=== PATIENT | female | born 1970 | race African-American/Black ===

== ENCOUNTER 2021-01-24 20:56 | Inpatient (IN) | payer MEDICAID ==
[~2021-01-24] VITALS: Ht 160 cm; Wt 78.9 kg
[2021-01-24] MEDS ORDERED: NALOXONE HCL 0.4 MG/ML 1ML VIAL IV PRN (21:15)
[2021-01-24] MEDS ORDERED: SODIUM CHLORIDE 0.9% 1,000 ML IV ONE (21:15)
[2021-01-24] MEDS ORDERED: DIPHENHYDRAMINE 50MG/ML VIAL IM STA (21:19)
[2021-01-24] MEDS ORDERED: HALOPERIDOL LACTATE 5MG/ML VIAL IM STA (21:19)
[2021-01-24 22:55] LABS: BASOPHILS % 0.5 % (0.0-2.0); EOSINOPHILS % 0.7 % (0.0-5.0); HEMATOCRIT. 37.5 % (36.0-48.0); HEMOGLOBIN. 12.2 g/dL (12.0-16.0); LYMPHOCYTES % 23.7 % (20.0-50.0); MEAN CORPUSCULAR HEMOGLOBIN 28.7 pg (28.0-32.0); MEAN CORPUSCULAR VOLUME 88.1 fL (81.0-99.0); MONOCYTES % 6.2 % (2.0-8.0); NEUTROPHILS % 68.9 % (40.0-76.0); PLATELET 398 x1000/uL (130-400); RED BLOOD CELL COUNT 4.26 mill/uL (4.2-5.4); RED CELL DISTRIBUTION WIDTH 14.9 % (11.6-14.6)
[2021-01-24 23:02] LABS: CHLORIDE 108 mEq/L (98-107)
[2021-01-24 23:11] LABS: CREATINE KINASE 601 IU/L (26-192)
[2021-01-24 23:12] LABS: HCG SCREEN NEGATIVE
[2021-01-24 23:25] LABS: ETHANOL BLOOD 403 mg/dL
[2021-01-25] MEDS ORDERED: SODIUM CHLORIDE 0.9% 1,000 ML IV ONE (00:15)
[2021-01-25] MEDS ORDERED: FOLIC ACID 1 MG, THIAMINE HCL 100 MG, MVI, ADULT NO.1 10 ML in DEXTROSE 5% WATER 1,000 ML IV ONE (00:15)
[2021-01-25] MEDS ORDERED: DEXT 5%/0.9% NACL 1,000 ML IV ONE (02:00)
[2021-01-25 06:14] LABS: CLARITY URINE CLEAR (CLEAR); COLOR URINE YELLOW (YELLOW); KETONES URINE NEGATIVE (NEGATIVE); LEUKOCYTE ESTERASE URINE 1+ (NEGATIVE); NITRITE URINE NEGATIVE (NEGATIVE); OCCULT BLOOD URINE NEGATIVE (NEGATIVE); PROTEIN URINE NEGATIVE (NEGATIVE); SPECIFIC GRAVITY URINE 1.011 (1.005-1.030); UROBILINOGEN URINE 0.2 E.U./dL (0.2-1.0)
[2021-01-25 06:30] LABS: *AMPHETAMINES SCREEN URINE NEGATIVE (NEGATIVE); *BARBITURATES SCREEN URINE NEGATIVE (NEGATIVE); *BENZODIAZEPINES SCREEN URINE NEGATIVE (NEGATIVE)
[2021-01-25 06:31] LABS: CANNABINOID URINE SCREEN NEGATIVE (NEGATIVE); METHADONE URINE SCREEN NEGATIVE (NEGATIVE); OPIATES URINE SCREEN NEGATIVE (NEGATIVE); PHENCYCLIDINE URINE SCREEN NEGATIVE (NEGATIVE)
[2021-01-25 06:32] LABS: *COCAINE SCREEN URINE PRESUMTIVE POSITIVE (NEGATIVE)
[2021-01-25 10:00] VITALS: BP 117/80
[2021-01-25] MEDS: CHLORDIAZEPOXIDE 25MG CAPSULE PO SCH ×3 (10:27→21:29)
[2021-01-25] MEDS: THIAMINE HCL 100MG TABLET PO SCH (10:28)
[2021-01-25] MEDS: FOLIC ACID 1MG TABLET PO SCH (10:28)
[2021-01-25] MEDS: DEXT 5%/0.9% NACL 1,000 ML IV SCH ×2 (10:39→21:36)
[2021-01-25] MEDS ORDERED: AMLO5TAB88 PO (11:52)
[2021-01-25] MEDS ORDERED: QUET50TA PO (11:53)
[2021-01-25 12:00] VITALS: BP 125/64
[2021-01-25] MEDS ORDERED: HYDR50SY PO (14:12)
[2021-01-25] MEDS ORDERED: HYDROXYZINE 25MG TABLET PO PRN (14:15)
[2021-01-25] MEDS: HYDROXYZINE 25MG TABLET PO PRN ×2 (14:25→21:29)
[2021-01-25 16:00] VITALS: BP 140/56
[2021-01-25 17:32] LABS: BASOPHILS % 0.4 % (0.0-2.0); EOSINOPHILS % 0.9 % (0.0-5.0); HEMOGLOBIN. 9.8 g/dL (12.0-16.0); LYMPHOCYTES % 25.7 % (20.0-50.0); MEAN CORPUSCULAR HEMOGLOBIN 28.8 pg (28.0-32.0); MEAN CORPUSCULAR VOLUME 87.8 fL (81.0-99.0); MONOCYTES % 9.2 % (2.0-8.0); NEUTROPHILS % 63.8 % (40.0-76.0); PLATELET 319 x1000/uL (130-400); RED BLOOD CELL COUNT 3.41 mill/uL (4.2-5.4); RED CELL DISTRIBUTION WIDTH 15.3 % (11.6-14.6)
[2021-01-25 17:44] LABS: CHLORIDE 110 mEq/L (98-107)
[2021-01-25 21:30] VITALS: BP 146/65
[2021-01-26] VITALS: BP 139/65
[2021-01-26] MEDS: DEXT 5%/0.9% NACL 1,000 ML IV SCH ×2 (06:00→16:00)
[2021-01-26] MEDS: CHLORDIAZEPOXIDE 25MG CAPSULE PO SCH ×3 (06:09→20:57)
[2021-01-26 06:12] VITALS: BP 134/84
[2021-01-26] MEDS: FOLIC ACID 1MG TABLET PO SCH (09:37)
[2021-01-26] MEDS: THIAMINE HCL 100MG TABLET PO SCH (09:37)
[2021-01-26 09:52] LABS: CHLORIDE 110 mEq/L (98-107)
[2021-01-26 09:56] LABS: BASOPHILS % 0.3 % (0.0-2.0); EOSINOPHILS % 2.5 % (0.0-5.0); HEMATOCRIT. 30.6 % (36.0-48.0); HEMOGLOBIN. 9.9 g/dL (12.0-16.0); LYMPHOCYTES % 33.5 % (20.0-50.0); MEAN CORPUSCULAR HEMOGLOBIN 28.4 pg (28.0-32.0); MEAN CORPUSCULAR VOLUME 88.3 fL (81.0-99.0); MEAN PLATELET VOLUME 7.4 fl (7.4-10.4); MONOCYTES % 10.5 % (2.0-8.0); NEUTROPHILS % 53.2 % (40.0-76.0); PLATELET 310 x1000/uL (130-400); RED BLOOD CELL COUNT 3.47 mill/uL (4.2-5.4)
[2021-01-26 12:00] VITALS: BP 148/89
[2021-01-26 16:00] VITALS: BP 109/67
[2021-01-26] MEDS: HYDROXYZINE 25MG TABLET PO PRN (17:34)
[2021-01-26 20:00] VITALS: BP 130/89
[2021-01-27] VITALS: BP 125/77
[2021-01-27] MEDS: DEXT 5%/0.9% NACL 1,000 ML IV SCH (02:00)
[2021-01-27 04:00] VITALS: BP 106/65
[2021-01-27] MEDS: CHLORDIAZEPOXIDE 25MG CAPSULE PO SCH (05:18)
[2021-01-27 08:00] VITALS: BP 110/74
[2021-01-27] MEDS: FOLIC ACID 1MG TABLET PO SCH (09:40)
[2021-01-27] MEDS: THIAMINE HCL 100MG TABLET PO SCH (09:41)
== END 2021-01-27 11:10 | disposition left against medical advice (07) | DRG 52 ==
LOC: EDBD 20:56 → ER 20:56 → 8WST 01-25 00:34 → ENRESERV 01-25 08:23
PROVIDERS: ADMIT Family Medicine; ATTEND Family Medicine
DX: G92 Toxic encephalopathy (principal); F10.129 Alcohol abuse with intoxication, unspecified; F14.90 Cocaine use, unspecified, uncomplicated; E44.0 Moderate protein-calorie malnutrition; D64.9 Anemia, unspecified; Y90.8 Blood alcohol level of 240 mg/100 ml or more; Z59.0 Homelessness; Z68.30 Body mass index [BMI] 30.0-30.9, adult
CPT/HCPCS: 36415; 71045; 80053; 80305; 80307; 80320; 80329; 81003; 82550; 82962; 83605; 83735; 84100; 84703; 85025; 93005; 99291; J1200; J1630; J3411; J3490; J7030; J7042; J7070; G0480

== ENCOUNTER 2021-10-25 04:11 | Inpatient (IN) | payer MEDICAID, OTHER ==
[~2021-10-25] VITALS: Ht 157.5 cm; Wt 70.3 kg
[~2021-10-25 04:11] MED LIST: AMLO5TAB88 PO; HYDR50SY PO; QUET50TA PO
[2021-10-25] MEDS ORDERED: SODIUM CHLORIDE 0.9% 1,000 ML IV ONE ×2 (05:45→06:00)
[2021-10-25 05:58] LABS: BASOPHILS % 0.6 % (0.0-2.0); EOSINOPHILS % 0.4 % (0.0-5.0); HEMATOCRIT. 37.7 % (36.0-48.0); HEMOGLOBIN. 12.5 g/dL (12.0-16.0); LYMPHOCYTES % 44.1 % (20.0-50.0); MEAN CORPUSCULAR HEMOGLOBIN 29.8 pg (28.0-32.0); MEAN CORPUSCULAR VOLUME 90.1 fL (81.0-99.0); MEAN PLATELET VOLUME 8.3 fl (7.4-10.4); NEUTROPHILS % 43.9 % (40.0-76.0); PLATELET 178 x1000/uL (130-400); RED BLOOD CELL COUNT 4.19 mill/uL (4.2-5.4); RED CELL DISTRIBUTION WIDTH 13.5 % (11.6-14.6)
[2021-10-25 06:00] LABS: CHLORIDE 101 mEq/L (98-107)
[2021-10-25] MEDS ORDERED: CHLORDIAZEPOXIDE 25MG CAPSULE PO ONE (06:00)
[2021-10-25] MEDS ORDERED: LORAZEPAM 2MG/ML CPJ IV ONE (06:00)
[2021-10-25] MEDS ORDERED: ASPIRIN 325MG EC TABLET PO ONE (12:45)
[2021-10-25 16:30] VITALS: BP_SYST 163; BP_SYST 165; BP_DIAS 93
[2021-10-25] MEDS ORDERED: HYDROCODONE/ACETAMINOPHEN 5/325MG TABLET PO PRN (16:45)
[2021-10-25 16:59] LABS: CLARITY URINE CLOUDY (CLEAR); COLOR URINE DARK YELLOW (YELLOW); KETONES URINE 2+ (NEGATIVE); LEUKOCYTE ESTERASE URINE TRACE (NEGATIVE); NITRITE URINE NEGATIVE (NEGATIVE); OCCULT BLOOD URINE NEGATIVE (NEGATIVE); PH URINE 5.5 (4.5-8.0); PROTEIN URINE 1+ (NEGATIVE); SPECIFIC GRAVITY URINE 1.022 (1.005-1.030)
[2021-10-25 17:13] LABS: *AMPHETAMINES SCREEN URINE NEGATIVE (NEGATIVE); *BARBITURATES SCREEN URINE NEGATIVE (NEGATIVE); *BENZODIAZEPINES SCREEN URINE PRESUMTIVE POSITIVE (NEGATIVE); CANNABINOID URINE SCREEN PRESUMTIVE POSITIVE (NEGATIVE); OPIATES URINE SCREEN NEGATIVE (NEGATIVE); PHENCYCLIDINE URINE SCREEN NEGATIVE (NEGATIVE)
[2021-10-25 17:14] LABS: METHADONE URINE SCREEN NEGATIVE (NEGATIVE)
[2021-10-25 17:15] LABS: *COCAINE SCREEN URINE PRESUMTIVE POSITIVE (NEGATIVE)
[2021-10-25] MEDS: AMLODIPINE 5MG TABLET PO SCH (17:15)
[2021-10-25 20:00] VITALS: BP 150/84
[2021-10-25] MEDS: METOPROLOL TARTRATE 50MG TABLET PO SCH (20:42)
[2021-10-25] MEDS: QUETIAPINE FUMARATE 50MG TABLET PO SCH (20:42)
[2021-10-25 23:45] VITALS: BP 93/68
[2021-10-26 04:00] VITALS: BP 139/82
[2021-10-26 08:00] VITALS: BP 122/85
[2021-10-26] MEDS: ASPIRIN 81MG TABLET PO SCH (09:09)
[2021-10-26] MEDS: MULTIVITAMINS,THER W-MINERALS TABLET PO SCH (09:10)
[2021-10-26] MEDS: AMLODIPINE 5MG TABLET PO SCH (09:10)
[2021-10-26] MEDS: FOLIC ACID 1MG TABLET PO SCH (09:10)
[2021-10-26] MEDS: METOPROLOL TARTRATE 50MG TABLET PO SCH ×2 (09:10→21:12)
[2021-10-26] MEDS: THIAMINE HCL 100MG TABLET PO SCH (09:10)
[2021-10-26] MEDS: LORAZEPAM 2MG/ML CPJ IV PRN ×2 (09:19→17:12)
[2021-10-26] MEDS: CHLORDIAZEPOXIDE 25MG CAPSULE PO SCH ×3 (11:52→21:12)
[2021-10-26 12:00] VITALS: BP 116/76
[2021-10-26] MEDS ORDERED: CHLORDIAZEPOXIDE 25MG CAPSULE PO SCH (14:00)
[2021-10-26 16:00] VITALS: BP 110/78
[2021-10-26 20:00] VITALS: BP 123/78
[2021-10-26] MEDS: QUETIAPINE FUMARATE 50MG TABLET PO SCH (21:12)
[2021-10-27] MEDS: CHLORDIAZEPOXIDE 25MG CAPSULE PO SCH (05:52)
[2021-10-27 08:00] VITALS: BP 129/79
[2021-10-27] MEDS: FOLIC ACID 1MG TABLET PO SCH (08:25)
[2021-10-27] MEDS: MULTIVITAMINS,THER W-MINERALS TABLET PO SCH (08:25)
[2021-10-27] MEDS: METOPROLOL TARTRATE 50MG TABLET PO SCH (08:26)
[2021-10-27] MEDS: THIAMINE HCL 100MG TABLET PO SCH (08:26)
[2021-10-27] MEDS: ASPIRIN 81MG TABLET PO SCH (08:26)
[2021-10-27] MEDS: AMLODIPINE 5MG TABLET PO SCH (08:26)
[2021-10-27 10:40] VITALS: BP 129/79
== END 2021-10-27 13:02 | disposition home or self-care (01) | DRG 203 ==
LOC: ER 04:11 → 6WST 12:55 → ENRESERV 15:38
PROVIDERS: ADMIT Internal Medicine; ATTEND Internal Medicine
DX: R07.9 Chest pain, unspecified (principal); D72.819 Decreased white blood cell count, unspecified; F10.239 Alcohol dependence with withdrawal, unspecified; F14.90 Cocaine use, unspecified, uncomplicated; F12.90 Cannabis use, unspecified, uncomplicated; I10 Essential (primary) hypertension; R74.01 Elevation of levels of liver transaminase levels; Y90.0 Blood alcohol level of less than 20 mg/100 ml
CPT/HCPCS: 36415; 71045; 80053; 80305; 80307; 80320; 80329; 81003; 84484; 85025; 93005; 99285; J2060; J7030; G0480

== ENCOUNTER 2022-02-12 16:31 | Inpatient (IN) | payer MEDICAID, OTHER ==
[~2022-02-12] VITALS: Ht 160 cm; Wt 68.0 kg
[2022-02-12] MEDS ORDERED: ASPIRIN 81MG TABLET PO ONE (17:30)
[2022-02-12] MEDS ORDERED: NITROGLYCERIN 0.4MG TABLET SL SL PRN (17:30)
[2022-02-12 17:55] LABS: BASOPHILS % 0.9 % (0.0-2.0); CHLORIDE 108 mEq/L (98-107); EOSINOPHILS % 0.5 % (0.0-5.0); HEMATOCRIT. 33.9 % (36.0-48.0); HEMOGLOBIN. 11.7 g/dL (12.0-16.0); LYMPHOCYTES % 50.1 % (20.0-50.0); MEAN CORPUSCULAR HEMOGLOBIN 30.5 pg (28.0-32.0); MEAN CORPUSCULAR VOLUME 88.9 fL (81.0-99.0); MONOCYTES % 9.3 % (2.0-8.0); NEUTROPHILS % 39.2 % (40.0-76.0); PLATELET 280 x1000/uL (130-400); RED BLOOD CELL COUNT 3.82 mill/uL (4.2-5.4); RED CELL DISTRIBUTION WIDTH 14.8 % (11.6-14.6)
[2022-02-12 19:14] LABS: PARTIAL THROMBOPLASTIN TIME 27.3 sec (23.4-31.0); PROTHROMBIN TIME 10.5 sec (9.6-11.0)
[2022-02-12 19:35] LABS: CLARITY URINE CLEAR (CLEAR); COLOR URINE YELLOW (YELLOW); KETONES URINE NEGATIVE (NEGATIVE); LEUKOCYTE ESTERASE URINE NEGATIVE (NEGATIVE); NITRITE URINE NEGATIVE (NEGATIVE); OCCULT BLOOD URINE TRACE (NEGATIVE); PH URINE 6.5 (4.5-8.0); PROTEIN URINE NEGATIVE (NEGATIVE); SPECIFIC GRAVITY URINE 1.006 (1.005-1.030); UROBILINOGEN URINE 0.2 E.U./dL (0.2-1.0)
[2022-02-12] MEDS ORDERED: SODIUM CHLORIDE 0.9% 1,000 ML IV ONE (19:45)
[2022-02-12 19:52] LABS: *AMPHETAMINES SCREEN URINE NEGATIVE (NEGATIVE); *BARBITURATES SCREEN URINE NEGATIVE (NEGATIVE); *BENZODIAZEPINES SCREEN URINE NEGATIVE (NEGATIVE); *COCAINE SCREEN URINE NEGATIVE (NEGATIVE); METHADONE URINE SCREEN NEGATIVE (NEGATIVE); OPIATES URINE SCREEN NEGATIVE (NEGATIVE)
[2022-02-12 19:53] LABS: CANNABINOID URINE SCREEN NEGATIVE (NEGATIVE); PHENCYCLIDINE URINE SCREEN NEGATIVE (NEGATIVE)
[2022-02-12] MEDS ORDERED: LORAZEPAM 0.5MG TABLET PO ONE (20:30)
[2022-02-12] MEDS ORDERED: IOHEXOL-350 100 ML BOTTLE ONE (21:44)
[2022-02-12 23:00] VITALS: BP 165/87
[2022-02-12] MEDS ORDERED: LORAZEPAM 1MG TABLET PO PRN (23:30)
[2022-02-13 04:00] VITALS: BP 151/79
[2022-02-13 08:00] VITALS: BP 162/85
[2022-02-13] MEDS ORDERED: CARVEDILOL 3.125 MG TABLET PO SCH (09:00)
[2022-02-13] MEDS ORDERED: METOPROLOL TARTRATE 50MG TABLET PO SCH (09:00)
[2022-02-13] MEDS ORDERED: AMLODIPINE 5MG TABLET PO SCH (09:00)
[2022-02-13] MEDS ORDERED: ASPIRIN 81MG TABLET PO SCH (09:00)
[2022-02-13 11:20] VITALS: BP 151/60
[2022-02-13] MEDS ORDERED: QUETIAPINE FUMARATE 50MG TABLET PO SCH (21:00)
== END 2022-02-13 12:00 | disposition left against medical advice (07) | DRG 756 ==
LOC: ER 16:31 → 8WST 20:57 → ENRESERV 22:01 → ER 22:50
PROVIDERS: ADMIT Internal Medicine; ATTEND Internal Medicine
DX: F41.0 Panic disorder [episodic paroxysmal anxiety] (principal); E87.8 Other disorders of electrolyte and fluid balance, not elsewhere classified; D72.819 Decreased white blood cell count, unspecified; M94.0 Chondrocostal junction syndrome [Tietze]; F32.A Depression, unspecified; Z53.29 Procedure and treatment not carried out because of patient's decision for other reasons; I10 Essential (primary) hypertension; R06.02 Shortness of breath
CPT/HCPCS: 36415; 71045; 71275; 80053; 80305; 81003; 83880; 84484; 85025; 85379; 93005; 99285; J7030; Q9967